=== PATIENT | female | born 1945 | race Caucasian/White ===

== ENCOUNTER → 2017-01-15 | Outpatient (CLI) | payer MEDICARE, OTHER | END | disposition home or self-care (01) | LOC: LAB.O 14:14 | PROVIDERS: ATTEND Family Medicine | DX: R76.8 Other specified abnormal immunological findings in serum (principal); R53.82 Chronic fatigue, unspecified ==

== ENCOUNTER → 2017-03-09 | Outpatient (CLI) | payer MEDICARE, OTHER | END | disposition home or self-care (01) | LOC: GMA 18:17 | PROVIDERS: ATTEND Nurse Practitioner Family | DX: N39.0 Urinary tract infection, site not specified (principal) ==

== ENCOUNTER → 2017-06-06 | Outpatient (CLI) | payer MEDICARE, OTHER ==
--- NOTE | 2017-06-07 17:11 | MRI ---
EXAM DESCRIPTION: Cervical Spine CLINICAL HISTORY: SPINAL STENOSIS IN CERVICAL REGION COMPARISON: 10/11/2016 TECHNIQUE: Multiplanar images of the cervical spine were submitted without the administration of contrast FINDINGS: There is reversal of the normal lordosis which is centered at C5-6. There is grade 1 retrolisthesis of C5 on C6 which has increased when compared to the patient's prior study. Mild anterolisthesis of C3 on C4 is stable. There is loss of disc height at C4-5, C5-6 and C6-7 consistent with disc desiccation. There is no geographic marrow lesion or edema to suggest fracture. There is reactive endplate change at C5-6. Craniovertebral junction appears unremarkable. Signal within the cervical cord appears within normal limits. C2-3: Unremarkable. C3-4: Mild anterolisthesis and disc bulging results in mild flattening of the anterior aspect of the thecal sac and mild bilateral neural foraminal stenosis right greater than left. There appears to be a small disc osteophyte complex laterally on the right which contributes to the neural foraminal narrowing. C4-5: Mild disc bulging and facet arthropathy without significant central canal stenosis. There is mild impingement on the neural foramina.. C5-6: Generalized disc bulging with broad-based protrusion centrally and on the right which results in flattening of the right aspect of the cord. There is moderate narrowing of the central aspect of the canal and moderate to severe narrowing on the left. There is bilateral neural foraminal stenosis right greater than left. C6-7: Generalized bulging of the disc and facet arthropathy at C6-7 with moderate narrowing of the central canal and neural foramina. C7-T1: No significant central canal stenosis. IMPRESSION: Multilevel degenerative change as described above There appears to have been progression of degenerative change at C5-C6 with grade 1 retrolisthesis and increasing central canal and neural foraminal stenosis. There is a broad-based central and right-sided disc bulge which results in moderate left and moderate to severe right sided canal stenosis with some compression of the cord particularly on the right Generalized disc bulging and osteophytosis at C6-7 with moderate central canal stenosis and bilateral neural foraminal stenosis, similar to the previous study No evidence of abnormal signal within the cord Electronically signed by: Hallie Cespedes 06/07/2017 4:36 PM CDT
== END | disposition home or self-care (01) ==
LOC: MRI 09:01
PROVIDERS: ATTEND Orthopaedic Surgery Orthopaedic Surgery of the Spine
DX: M48.02 Spinal stenosis, cervical region (principal)

== ENCOUNTER → 2017-06-12 | Outpatient (CLI) | payer MEDICARE, OTHER | END | disposition home or self-care (01) | LOC: GMAB 10:27 | PROVIDERS: ATTEND Family Medicine | DX: I10 Essential (primary) hypertension (principal) ==

== ENCOUNTER → 2018-03-22 | Outpatient (CLI) | payer MEDICARE, OTHER ==
--- NOTE | 2018-03-22 12:27 | MRI ---
EXAM DESCRIPTION: Cervical Spine: MRI. CLINICAL HISTORY: SPINAL STENOSIS COMPARISON: MRI scan cervical spine 06/06/2017. MRI scan of the lumbar spine on this visit. TECHNIQUE: Multiplanar MRI, multiple sequences, non-contrast High-field. FINDINGS: C3-4: Disc desiccation and grade 1 anterolisthesis. Minimal posterior disc bulge. Right uncinate spur and facet arthrosis with right neural foraminal stenosis. Minimal arthrosis left facet and minimal left neural foraminal narrowing. C4-5: Disc desiccation and anterior disc space loss anterior bulging and endplate ridging. Trace anterolisthesis. No significant disc bulge. Right uncinate spur and facet arthrosis with right neural foraminal stenosis. Moderate left neural foraminal narrowing. Minimal bilateral facet arthrosis. C5-6: Disc desiccation and moderate disc space loss. Anterior bulging and endplate ridging. Schmorl's node in the inferior C5 endplate. Grade 1 retrolisthesis. Posterior disc osteophyte complex protruding in the midline and to the right of midline encroaching on the cord and the right C6 nerve with right paracentral Canal stenosis. Fluid signal in the posterior midline disc margin indicating annular fissure. Right intraforaminal disc osteophyte complex and right neural foraminal stenosis. Mild left neural foraminal narrowing. C6-7: Disc desiccation and disc space loss anterior bulging and endplate ridging. Posterior disc bulge abutting the cord. Bilateral uncinate spurs. Bilateral moderate to severe neural foraminal narrowing. Normal facets. Normal signal in the remaining discs with no bulging. Disc spaces preserved. Canal and neural foramina are patent. Facets negative. No scoliosis. Spine is kyphotic C2-C5. No cord compression or cord edema. Atlantoaxial joint is minimally hypertrophied. Base of the cerebellar tonsils is just above the foramen magnum. Paravertebral soft tissues unremarkable. Vertebral bodies are not compressed at any level. Normal marrow signal in the remaining vertebral bodies and the posterior elements. IMPRESSION: 1. C3-4, grade 1 anterolisthesis. Right side neural foraminal stenosis, stable since the prior study. 2. C4-5 trace grade 1 anterolisthesis with anterior spondylosis. Right neural foraminal stenosis stable since the prior study. 3. C5-C6 right posterior paracentral disc osteophyte complex encroaching on the cord and the right C6 nerve with retrolisthesis. Right paracentral mild canal stenosis and right neural foraminal stenosis. Stable since the prior study. Annular fissure in the disc. 4. C6-7 bilateral uncinate spurs with moderate to severe neural foraminal narrowing. Stable since the prior study. Electronically signed by: Girma Romo MD 03/22/2018 12:25 PM CDT
--- NOTE | 2018-03-22 13:19 | MRI ---
EXAM DESCRIPTION: Lumbar Spine w/wo Contrast: Magnetic Resonance Imaging. CLINICAL HISTORY: LOW BACK PAIN COMPARISON: MRI scan lumbar spine with and without gadolinium IV contrast 10/11/2016. MRI scan of the cervical spine without contrast on this visit. TECHNIQUE: Multiplanar, MRI, multiple standard sequences, without and with standard dose Gadolinium IV contrast, lumbar spine. No adverse reactions. FINDINGS: S1 segment may be transitional and partially lumbarized. Rudimentary S1-2 disc. L5-S1 disc space imaged on axial T2 series 501, image 3. This is also consistent with prior report. L5-S1: Anterior interspace fusion device with superior and inferior anchor screws. Bilateral ligament hypertrophy with right facet arthrosis. Minimal narrowing of the left subarticular recess. Hardware Artifact causing technical difficult evaluation on the contrast images. No fluid collections. Left moderate to severe foraminal narrowing. Mild narrowing right foramen. Mild canal narrowing. Again noted is large cyst in the S2 sacral segment. L4-5: Anterior interbody fusion spacer with superior and inferior anchoring screws. Customary position. Artifact on the postgadolinium images limiting evaluation. Canal is patent. Bilateral moderate foraminal narrowing. No fluid collections. L3-4: Moderate disc space loss anterior bulging and endplate ridging. Endplate irregularities and Modic type II endplate reactive changes to the right of midline. Posterior broad-based disc osteophyte complex abutting the thecal sac and the descending L4 nerves. Moderate canal narrowing. Bilateral facet arthrosis and ligament hypertrophy more on the left. Right foraminal stenosis and moderate left foraminal narrowing is stable. Mild canal narrowing. Evaluation of the contrast images at this level is limited due to artifact from the hardware. Bilateral transpedicular screws at L3 and L5 with unilateral connecting rods. No fluid collection around the hardware. L2-3: Disc desiccation moderate disc space loss, anterior bulging and endplate ridging. Schmorl's nodes in the endplates. Bilateral mild ligament hypertrophy and facet arthrosis. Right posterior disc osteophyte bulge or protrusion more prominent abutting the descending right L3 nerve and the right subarticular recess with borderline right paracentral canal stenosis. This has enlarged since the prior study. Enhancement in this complex and in the L2 endplate. Moderate to severe right foraminal narrowing and moderate left foraminal narrowing. L1-2: Moderate disc space loss and desiccation. Anterior bulging and endplate ridging. Small Schmorl's nodes inferior L1 endplate. Posterior disc osteophyte broad-based bulge abutting the thecal sac. Minimal facet arthrosis and ligament hypertrophy bilaterally. Mild canal narrowing. Posterior disc osteophyte complex enhancing and no other abnormal enhancement at this level. Bilateral mild foraminal narrowing. T12-L1: Minimal disc desiccation with no bulging. Posterior elements are unremarkable. Canal and foramina are patent. Conus terminates at L1. No abnormal contrast enhancement. Vertebral bodies are not compressed at any level. Normal marrow signal in the vertebral bodies and the posterior elements. No abnormal Contrast enhancement. Paravertebral soft tissues unremarkable but technically limited below the L3-4 disc space level..Perivertebral contrast enhancement unremarkable from T12 to L3 4 disc space level. IMPRESSION: 1. Postcontrast images limited from the T3-4 disc space level inferiorly due to artifact from the hardware. Less artifact on the precontrast images. 2. Left moderate to severe foraminal narrowing at L5-S1. Correlate for left L5 radiculopathy. No hardware complications. Stable since the prior study. 3. No hardware complications at L4-5. Stable since the prior study. Moderate foraminal narrowing. 4. Posterior broad-based L3-4 disc osteophyte complex abutting the thecal sac and the descending L4 nerves. Right foraminal stenosis and moderate left foraminal narrowing. Correlate for right L3 radiculopathy. Stable since the prior study. Bilateral L3-L5 transpedicular screws and unilateral connecting rods are unremarkable. 5. Posterior disc osteophyte complex at L2-3 with enhancement, moderate canal narrowing, stable since the prior study. 6. Posterior L2-3 disc osteophyte bulge or protrusion abutting the descending right L3 nerve in the right subarticular recess with borderline right paracentral canal stenosis. The complex is enhancing. This has enlarged since the prior study. Electronically signed by: Girma Romo MD 03/22/2018 1:17 PM CDT
== END ==
LOC: MRI 07:57
PROVIDERS: ATTEND Family Medicine
DX: M48.02 Spinal stenosis, cervical region (principal); M54.5 Low back pain; M25.78 Osteophyte, vertebrae

== ENCOUNTER → 2018-04-12 | Outpatient (CLI) | payer MEDICARE, OTHER ==
--- NOTE | 2018-04-13 16:53 | CT ---
EXAM DESCRIPTION: Cervical Spine: Computed Tomography. CLINICAL HISTORY: CERVICAL SPINE STENOSIS COMPARISON: CT lumbar spine on the same visit. MRI scan lumbar spine 03/22/2018. TECHNIQUE: Spiral, axial 2.5 mm scans through the cervical spine without contrast. Coronal and sagittal 2.0 mm Reconstructions. Total Exam DLP: 468.65 mGy-cm. This exam was performed according to our departmental dose-optimization program which includes automated exposure control, adjustment of the mA and/or kV according to patient size and/or use of iterative reconstruction technique; to reduce radiation dose to as low as reasonably achievable (ALARA). FINDINGS: Hypertrophic changes around the atlantoaxial joint. Minimal arthrosis bilateral atlantooccipital joints. Bilateral C1 to facets are negative. No fractures. C2-3: Canal and bilateral neural foramina are patent with no significant disc bulging. Mild right facet arthrosis. C3-4: Disc space maintained. Grade 1 anterolisthesis. Right uncinate spur. Moderate right facet arthrosis and mild left facet arthrosis. Right neural foraminal stenosis and moderate left neural foraminal narrowing with no significant disc bulging. No canal stenosis. C4-5: Minimal to moderate disc space loss more anteriorly. Anterior endplate spurs. Trace anterolisthesis. Minimal midline posterior disc bulge. Bilateral facet arthrosis more on the right. Right uncinate spur. Borderline right neural foraminal stenosis and moderate left neural foraminal narrowing. C5-6: Marked disc space loss. Posterior Schmorl's node containing a in the C5 endplate. Grade 1 retrolisthesis. Posterior broad-based disc osteophyte bulge into the canal and mild canal stenosis. Bilateral uncinate spurs and bilateral neural foraminal stenosis. Facets are unremarkable. C6-7: Marked disc space loss diffusely with circumferential endplate spurs. Anterior disc osteophyte bulge. Posterior disc osteophyte bulge encroaching on the canal abutting the cord and mild central canal stenosis. Bilateral uncinate spurs and mild to borderline bilateral neural foraminal stenosis. Remaining cervical discs spaces are maintained and no significant disc bulging. Minimal facet arthrosis. Any. No canal or neural foraminal stenosis. No vertebral body compression at any level. C3-C6 kyphosis. Thyroid gland unremarkable. Limited patient and evaluation of cervical soft tissues due to lack of IV contrast. Small lymph nodes are present. Bilateral apical pleural thickening of the lungs. The included esophagus is distended and deviates to the right of the upper thoracic spine posterior to the trachea. The significance of this is uncertain. IMPRESSION: 1. Grade 1 anterolisthesis C3-4. Right neural foraminal stenosis and no canal stenosis. 2. Trace anterolisthesis C4-5 posterior midline bulge. Borderline right neural foraminal stenosis and moderate left neural foraminal and canal narrowing. 3. Marked disc space loss C5-6 and large posterior C5 Schmorl's node. Grade 1 retrolisthesis. Mild central canal stenosis. Bilateral neural foraminal stenosis. 4. Posterior C6-7 disc osteophyte bulge and significant disc space loss with mild central canal stenosis. Borderline bilateral neural foraminal stenosis. Electronically signed by: Girma Romo MD 04/13/2018 4:52 PM CDT
--- NOTE | 2018-04-13 18:24 | CT ---
EXAM DESCRIPTION: Lumbar Spine: Computed Tomography. CLINICAL HISTORY: S/P LUMBAR FUSION COMPARISON: CT scan cervical spine non - Contrast on this visit. MRI scan lumbar spine 03/22/2018. TECHNIQUE: Spiral, axial 2.5 mm scans through the lumbarspine without contrast. Coronal and sagittal 2.0 mm Reconstructions. Total Exam DLP: 580.74mGy-cm. This exam was performed according to our departmental dose-optimization program which includes automated exposure control, adjustment of the mA and/or kV according to patient size and/or use of iterative reconstruction technique; to reduce radiation dose to as low as reasonably achievable (ALARA). FINDINGS: Fusion construct L4-S1. Interbody fusion devices at L4-5 and L5-S1. Anterior interspace fusion devices at the same levels. Customary position. No bony complications. Bilateral transpedicular screws L4 and S1 with unilateral connecting rods. Hardware is intact. No bony complications. Moderate canal narrowing L4-5 and mild canal narrowing L5-S1. Bilateral moderate foraminal narrowing at L4-5. Mild narrowing on the right at L5-S1 and moderate narrowing on the left. Advanced arthrosis of the L4-5 and L5-S1 facets more on the left than right. Severe disc space loss at L3-4 with diffuse endplate sclerosis superior and inferior and multiple Schmorl's nodes more on the inferior L3 endplate. Trace retrolisthesis. Anterior disc bulge and endplate spurs. Posterior osteophyte bulge, encroaching on the canal. Bilateral advanced facet arthrosis and ligament hypertrophy. Bilateral moderate to severe foraminal narrowing more on the right. Sclerosis and minimal loss of height of the right side of the vertebral body. L2-3: Severe disc space loss and air density in the disc space. Air-filled Schmorl's nodes in the superior L2 endplate. More Schmorl's nodes in the superior endplate. Anterior disc bulging and endplate spurs. Trace retrolisthesis. Posterior broad-based disc bulge and minimal disc bulge into the bilateral foramina. Severe right neural foraminal narrowing or mild foraminal stenosis. Mild to moderate left neural foraminal narrowing. Bilateral facet arthrosis and ligament hypertrophy more on the right. L1-2: Severe disc space loss and diffuse endplate reactive changes with Schmorl's nodes more on the superior L1 endplate. Anterior endplate spurs and disc bulging. Posterior disc bulge and endplate spur complex encroaching on the thecal sac with bilateral facet arthrosis and hypertrophy ligaments. Moderate canal narrowing. Bilateral mild foraminal narrowing. More sclerosis on the left side of the endplates and disc space. T12-L1: Minimal disc space loss. Alignment is unremarkable. No significant disc bulge. Canal and foramina are patent. Minimal facet arthrosis. No vertebral body compression at any level. Left L2-L4 curvature and right L4 - S1 curvature. No large paravertebral mass. IMPRESSION: 1. L4-S1 fusion construct anterior and posterior. Customary position and near-anatomic alignment. No hardware or bony complications. Moderate narrowing of the neuroforamina. Advanced arthrosis left side facets. 2. Advanced spondylosis L3-4 and trace retrolisthesis. Bilateral moderate to severe foraminal narrowing more on the right. Facet arthrosis and ligament hypertrophy. Spondylotic mild compression of the right L3 vertebral body. 3. Advanced spondylosis L2-3 and trace retrolisthesis posterior broad-based disc bulge. Severe right neural foraminal narrowing or mild stenosis. Moderate left neural foraminal narrowing. Significant canal narrowing. 4. L1-2 posterior disc bulge, moderate canal narrowing and bilateral mild foraminal narrowing. Electronically signed by: Girma Romo MD 04/13/2018 6:23 PM CDT
== END ==
LOC: CT 10:56
PROVIDERS: ATTEND Orthopaedic Surgery Orthopaedic Surgery of the Spine
DX: M48.02 Spinal stenosis, cervical region (principal); M48.061 Spinal stenosis, lumbar region without neurogenic claudication; M51.86 Other intervertebral disc disorders, lumbar region; M50.90 Cervical disc disorder, unspecified, unspecified cervical region; Z98.1 Arthrodesis status

== ENCOUNTER → 2018-05-28 | Outpatient (CLI) | payer MEDICARE, OTHER | LOC: GMAJS 11:33 | PROVIDERS: ATTEND Physician Assistant | DX: R30.0 Dysuria (principal) ==

== ENCOUNTER → 2018-06-17 | Outpatient (CLI) | payer MEDICARE, OTHER ==
--- NOTE | 2018-06-17 14:34 | CT ---
EXAM DESCRIPTION: Abdomen/Pelvis w/Contrast: Computed Tomography. CLINICAL HISTORY: LLQ PAIN COMPARISON: CT scan abdomen and pelvis 10/19/2016. TECHNIQUE: Spiral-axial scans at 5.0 mm intervals through the abdomen and pelvis, after nonionic IV contrast and water-soluble oral contrast. Coronal and sagittal 2.0 mm reconstructions. Delayed scans, liver through the pelvis. Axial-spiral 5mm. No adverse reactions. Total Exam DLP: 2212.19 mGy-cm. This exam was performed according to our departmental dose-optimization program which includes automated exposure control, adjustment of the mA and/or kV according to patient size and/or use of iterative reconstruction technique; to reduce radiation dose to as low as reasonably achievable (ALARA). FINDINGS: Colon: Oral contrast from the ascending colon to the distal transverse colon. Fascial thickening and mesenteric stranding is noted abutting the descending colon at the level of the superior iliac crests. More inferiorly, the serosa and outer wall of the colon are thickened along with thickening of the mucosa with significant narrowing of the lumen. This extends almost to the level of the acetabulum. The remainder of the sigmoid colon and rectum are unremarkable except for moderate redundancy of the sigmoid colon. Abnormal segments of distal transverse colon and descending colon on the prior study appear normal on this study. No free intraperitoneal air. No fluid in the pelvic cul-de-sac or around the inflamed segment. Pelvic Organs: Normal appearance of the vaginal cuff. Gynecological organs are absent. No fluid in the cul-de-sac. Small Bowel: Oral contrast throughout with normal caliber Terminal Ileum/Cecum: Normal caliber and contains oral contrast. Small appendiceal stump. Lung bases and pleura: Minimal scarring lateral left base. Liver, Stomach, Spleen, Adrenal Glands: Minimal fatty replacement in the liver with no significant enlargement. Contrast and air contrast level in the diverticulum at the junction of the second and third segment of the duodenum, impressing on the uncinate process of the pancreas. Otherwise unremarkable. Pancreas, Gallbladder, Ducts: Gallbladder visualized. Infiltration of the pancreas. Normal duct.. Kidneys and Ureters: Unremarkable. Mesentery: Stranding around the diverticulitis and fascial thickening. No ascites. Aorta: Minimal atherosclerotic calcification and ectasia. Spine and Bony Pelvis: Minimal degenerative changes in the bilateral acetabula and pubic symphysis. Spondylosis at multiple levels of the lumbar spine with levoscoliosis and dextroscoliosis and fusion construct L4 S1- bilaterally. Large defect caused by a soft tissue mass in the midline into the left of midline at S2 most likely a sacral perineural cyst or Tarlov cyst. Stable since lumbar CT scan April 2018. Abdominal Wall/Back Soft Tissues: Minimal fatty diastases at the umbilicus. IMPRESSION: 1. Diverticulitis versus focal inflammatory or infectious process at the junction of the descending colon and proximal sigmoid. Fatty and fascial stranding and thickening but no fluid collection or free air. No fluid in the cul-de-sac. Very few diverticula are seen. Similar appearing more diffuse inflammatory or infectious process seen more proximally on CT scan in October 2016. 2. Stable duodenal diverticulum abutting the entrance of the pancreatic and common bile duct into the duodenum. 3. Stable lumbar sacral fusion construct. CRITICAL COMMUNICATION: The critical value was texted directly by phone to Dr. Tom Perkins, with text response, at approximately 1335 hours, on June 17, 2018. Electronically signed by: Girma Romo MD 06/17/2018 2:33 PM CDT
== END ==
LOC: GMAE 11:10
PROVIDERS: ATTEND Family Medicine
DX: K57.30 Diverticulosis of large intestine without perforation or abscess without bleeding (principal); R10.32 Left lower quadrant pain; E78.2 Mixed hyperlipidemia

== ENCOUNTER → 2018-08-01 | Outpatient (CLI) | payer MEDICARE, OTHER ==
--- NOTE | 2018-08-02 08:31 | RAD ---
EXAM DESCRIPTION: Cervical Spine,3 Views CLINICAL HISTORY: 72 yearsFemale, S/P CERVICAL SPINAL FUSION. PRIMARY COMPARISON: None. IMPRESSION: ACDF hardware is present from C5 through C7. Hardware appears in good alignment, with no complicating features. Reversal of the normal cervical lordosis. Vertebral body stature is maintained. No acute fracture or destructive osseous lesion. Moderate disc narrowing at C4-C5 with anterolateral osteophytes. No prevertebral soft tissue swelling. Electronically signed by: Pipe López MD 08/02/2018 8:30 AM CDT
== END ==
LOC: RAD 14:30
PROVIDERS: ATTEND Orthopaedic Surgery Orthopaedic Surgery of the Spine
DX: Z98.890 Other specified postprocedural states (principal); M43.22 Fusion of spine, cervical region

== ENCOUNTER → 2018-08-14 | Outpatient (CLI) | payer MEDICARE, OTHER ==
--- NOTE | 2018-08-15 08:35 | RAD ---
EXAM DESCRIPTION: Cervical Spine,3 Views CLINICAL HISTORY: CERVICAL SPINE FUSION COMPARISON: 01 August 2018 TECHNIQUE: AP/lateral/ open-mouth odontoid FINDINGS: Mild posterior subluxation of C4 on C3 is observed. Anterior and interbody fusion is seen at the C5-6 and C6-7 levels. Loss of disc height is observed at the a.c. 4 5 level. Anterior osteophyte formation is observed at this level. The atlantoaxial junction and dens are normal. No hardware failure seen. No soft tissue swelling is seen. No significant interval changes noted. IMPRESSION: There is evidence of ACDF at C5-6 and C6-7. No significant interval changes noted. Electronically signed by: Anish Sahni MD 08/15/2018 8:34 AM CDT
== END ==
LOC: RAD 13:39
PROVIDERS: ATTEND Orthopaedic Surgery Orthopaedic Surgery of the Spine
DX: Z98.1 Arthrodesis status (principal)

== ENCOUNTER → 2019-06-10 | Outpatient (CLI) | payer MEDICARE, OTHER ==
--- NOTE | 2019-06-10 17:16 | MRI ---
EXAM DESCRIPTION: Cervical Spine w/wo Contrast: MRI. CLINICAL HISTORY: 73 years Female CERVICAL SPINE FUSION COMPARISON: MRI scan of the cervical spine without contrast 03/22/2018. TECHNIQUE: Multiplanar, high-field MRI, multiple sequences, non-contrast Cervical spine. FINDINGS: C3-C4: Grade 1 anterolisthesis 1 mm. Disc space maintained. Right uncinate spur and right facet hypertrophic arthrosis with neural foraminal stenosis. Left uncinate spur and moderate left neural foraminal narrowing. Minimal mild narrowing of the canal. No change from the prior study. C4-C5: Anterior disc bulge and endplate reactive changes with disc space loss and endplate ridging. Bilateral mild neural foraminal narrowing. Mild canal narrowing. Bilateral mild facet arthrosis. Stable since the prior study. ACDF fusion construct C5-C7. Minimal posterior bulge of fusion material at C5-6 into the canal to the right of midline, abutting the right ventral cord and right C6 nerve. Moderate right neural foraminal narrowing with left neural foramen patent. Canal and bilateral neural foramina patent at C6-C7. No facet abnormalities. Normal signal in the remaining discs with no bulging. Disc spaces preserved. Canal and neural foramina are patent. Facet joints unremarkable. No change from the prior study. Spinal alignment minimally kyphotic C2-C5. No cord compression or cord edema. Atlantoaxial joint minimal fluid. Base of the cerebellar tonsils is at the level of the foramen magnum. Paravertebral soft tissues unremarkable. Vertebral bodies are not compressed at any level. Normal marrow signal in the remaining vertebral bodies and the posterior elements. IMPRESSION: 1. Grade 1 anterolisthesis C3-C4 with desiccation of the disc. Right uncinate spur and hypertrophic right facet arthrosis resulting in neural foraminal stenosis. Correlate for right C4 radiculopathy. 2. ACDF fusion construct C5-C7. Minimal narrowing of the right paracentral canal and right neuroforamen body fusion material at C5-C6. No stenosis. Other levels are stable since the prior study. Electronically signed by: Girma Romo MD 06/10/2019 5:14 PM CDT
== END ==
LOC: MRI 08:01
PROVIDERS: ATTEND Orthopaedic Surgery Orthopaedic Surgery of the Spine
DX: Z98.1 Arthrodesis status (principal); M43.12 Spondylolisthesis, cervical region; M50.31 Other cervical disc degeneration, high cervical region

== ENCOUNTER → 2019-07-08 | Outpatient (CLI) | payer MEDICARE, OTHER | LOC: GMAE 11:11 | PROVIDERS: ATTEND Family Medicine | DX: I10 Essential (primary) hypertension (principal); E11.9 Type 2 diabetes mellitus without complications ==

== ENCOUNTER → 2020-03-10 | Outpatient (CLI) | payer MEDICARE, OTHER | LOC: GMAE 11:33 | PROVIDERS: ATTEND Family Medicine | DX: R10.13 Epigastric pain (principal) ==

== ENCOUNTER → 2020-03-11 | Outpatient (CLI) | payer MEDICARE, OTHER ==
--- NOTE | 2020-03-11 10:36 | US ---
EXAM DESCRIPTION: Gall Bladder: ULTRASOUND. CLINICAL HISTORY: EPIGASTRIC PAIN COMPARISON: CT scan abdomen June 2018. TECHNIQUE: Transabdominal scanning: Arias-scale and Doppler modes. FINDINGS: Gallbladder: Normal size and shape with echogenic nonmovable polyp measuring 4.1 mm. No fluid around the gallbladder. No wall thickening. 2.6 mm. Non-tender with transducer pressure. Common bile duct: caliber 6.5 mm upper limits of normal. Liver: Increased echogenicity; contour liver capsule smooth where seen. No fluid around the liver. Intrahepatic biliary ducts normal caliber. Doppler hepatopedal flow portal vein.. Long axis right lobe 13.8 cm. Pancreas: normal size Normal echogenicity. Duct not seen. Aorta: 1.7 cm normal caliber. Right kidney: long axis is 9.3 cm. Mid renal cortical thickness and echogenicity normal. No echogenic stones, no pararenal fluid, no hydronephrosis.. IMPRESSION: 1. Gallbladder polyp but no stones or sludge. No wall thickening or fluid. Nontender. Common bile duct: Upper normal caliber for patient's age. 2. Mild steatosis of the liver with normal size and otherwise unremarkable. Pancreas negative. Physiologic appearance of the right kidney and normal caliber of the proximal abdominal aorta. Electronically signed by: Girma Romo MD 03/11/2020 10:35 AM CDT
== END ==
LOC: US 08:00
PROVIDERS: ATTEND Family Medicine
DX: K82.4 Cholesterolosis of gallbladder (principal); K76.0 Fatty (change of) liver, not elsewhere classified

== ENCOUNTER → 2020-05-06 | Outpatient (CLI) | payer MEDICARE, OTHER ==
--- NOTE | 2020-05-07 09:29 | RAD ---
EXAM DESCRIPTION: Chest,2 Views CLINICAL HISTORY: 74 years Female, PNEUMONIA COMPARISON: 08/19/2015 FINDINGS: 2 views/radiographs Heart size and pulmonary vessels are within normal limits. There is no pneumothorax or pleural effusion. The left lung is clear. Right perihilar airspace disease. The soft tissues are unremarkable. No acute osseous findings. IMPRESSION: Right perihilar airspace disease; atelectasis or pneumonia. Electronically signed by: Kashif Blancas MD 05/07/2020 9:28 AM CDT
== END ==
LOC: RAD 15:03
PROVIDERS: ATTEND Family Medicine
DX: J18.9 Pneumonia, unspecified organism (principal); R91.8 Other nonspecific abnormal finding of lung field

== ENCOUNTER 2020-06-16 20:09 | Emergency (ER) | payer MEDICARE, OTHER ==
[2020-06-16] MEDS ORDERED: ALUM & MAG HYDROX-SIMETHICONE 30 ML, LIDOCAINE VISCOUS 2% 15 ML PO ONE ×2 (20:26)
--- NOTE | 2020-06-16 21:15 | RAD ---
EXAM DESCRIPTION: Abdomen Series CLINICAL HISTORY: epigastric pain 1 hr COMPARISON: None FINDINGS: Frontal view of the chest and supine and upright images of the abdomen were submitted. Cardiac silhouette is within normal limits. There is no free air in the abdomen. There is no evidence of bowel obstruction. EKG leads project over the chest and abdomen. Linear opacity in the right mid lung may represent scar versus subsegmental atelectasis. Patient is status post cervical spine surgery and lumbar surgery. IMPRESSION: No acute abnormalities. Electronically signed by: Earl Dyer MD 06/16/2020 9:14 PM CDT
[2020-06-16] MEDS ORDERED: INSULIN DETEMIR 100 UNITS/ML PEN SUBCU ONE (21:45)
--- NOTE | 2020-06-17 00:34 | ED.PDOC ---
History of Present Illness - General Chief Complaint: General Stated Complaint: pain under both breast Time Seen by Provider: 06/16/20 20:21 Source: patient Exam Limitations: no limitations - History of Present Illness Initial Comments: The patient is a 74-year-old female presented emergency room secondary to about an hour and a half of symptoms ofEpigastric discomfort before arrival. No vomiting. She has had gastritis issues in the past and does take metformin. The patient additionally is a diabetic but does not follow her blood sugars. No true substernal chest pain. No shortness of breath. No syncope or near syncope. No palpitations. No fevers. no runny nose or sore throat. Discomfort did significantly improve with a GI cocktail. The patient did take 4 full dose aspirin before arrival. Timing/Duration: 1-3 hours Severity: mild Improving Factors: medication Worsening Factors: nothing Associated Symptoms: loss of appetite Allergies/Adverse Reactions: Allergies Celecoxib [From Celebrex] Allergy (Verified 08/19/15 09:28) Other itching Codeine Allergy (Verified 08/19/15 09:28) Enalapril Allergy (Verified 08/19/15 09:28) Home Medications: Ambulatory Orders Tlmwbkk-Jcijznvf-Nncvh Tab [Fiorinal Tab] 1 ea PO PRN PRN 08/19/15 Linaclotide [Linzess] 145 mcg PO ACBK 08/19/15 Losartan Potassium 100 mg PO DAILY 08/19/15 Naratriptan HCl [Amerge] 2.5 mg PO PRN 08/19/15 Zolpidem Tartrate [Ambien] 10 mg PO BEDTIME 08/19/15 Famotidine 20 mg PO DAILY #14 tab 06/17/20 Glipizide [Glipizide ER] 5 mg PO ACBK #30 tab 06/17/20 Sucralfate Tab [Carafate Tab] 1 gm PO QID #60 tab 06/17/20 Review of Systems - Review of Systems Constitutional: States: no symptoms reported EENTM: States: no symptoms reported Respiratory: States: no symptoms reported Cardiology: States: no symptoms reported Gastrointestinal/Abdominal: States: abdominal pain Genitourinary: States: no symptoms reported Musculoskeletal: States: no symptoms reported Skin: States: no symptoms reported Neurological: States: no symptoms reported Endocrine: States: no symptoms reported All other Systems: No Change from Baseline Past Medical History (General) - Patient Medical History Hx Seizures: No Hx Stroke: No Hx Dementia: No Hx Asthma: No Hx of COPD: No Hx Cardiac Disorders: Yes - Hx of OK no stents in place Hx Congestive Heart Failure: No Hx Pacemaker: No Hx Hypertension: Yes Hx Thyroid Disease: No Hx Diabetes: Yes - Type 2, Metaformin Hx Gastroesophageal Reflux: No Hx Renal Disease: No Hx Cancer: No Hx of HIV: No Hx Hepatitis C: No Hx MRSA: No Surgical History: Hysterectomy, other - Vaccination History Hx Tetanus, Diphtheria Vaccination: No Hx Influenza Vaccination: No Hx Pneumococcal Vaccination: Yes Immunizations Up to Date: - pt unsure - Social History Hx Tobacco Use: No Hx Chewing Tobacco Use: No Hx Alcohol Use: No Hx Substance Use: No Hx Substance Use Treatment: No Hx Depression: No Feels Threatened In Home Enviroment: No Feels Threatened In a Relationship: No Hx Physical Abuse: No Hx Emotional Abuse: No Hx Suspected Abuse: No - Activities of Daily Living Hospice Agency (if applicable):: None - Female History Patient is a Female of Child Bearing Age (10 -59 yrs old): No Family Medical History - Family History Father Living Status: Age at (years of age): 91 Hx Family Hypertension: Yes Physical Exam - Physical Exam General Appearance: Alert, No apparent distress Eye Exam: bilateral normal Ears, Nose, Throat: hearing grossly normal, normal pharynx Neck: full range of motion, supple Respiratory: lungs clear, normal breath sounds, no respiratory distress, no accessory muscle use Cardiovascular/Chest: normal peripheral pulses, regular rate, rhythm, no edema Peripheral Pulses: radial,right: 2+, radial,left: 2+ Gastrointestinal/Abdominal: soft, other - Epigastric tenderness to palpation. Rectal Exam: deferred Back Exam: no CVA tenderness, no vertebral tenderness Extremity: non-tender, normal inspection, no pedal edema, normal capillary refill Neurologic: turkish line attendant II-XII nml as tested, alert, normal mood/affect, oriented x 3 Skin Exam: normal color Comments: Vital Signs - 24 hr 06/16/20 06/16/20 06/16/20 20:13 20:15 21:10 Temperature 97.8 F Pulse Rate [ 68 68 75 monitor] Respiratory 20 18 Rate Blood Pressure 179/90 156/80 [Left Arm] O2 Sat by Pulse 98 99 Oximetry 06/16/20 06/16/20 06/17/20 22:10 23:10 00:00 Temperature 97.9 F 97.8 F Pulse Rate [ 77 72 70 monitor] Respiratory 18 18 20 Rate Blood Pressure 134/76 125/74 135/76 [Left Arm] O2 Sat by Pulse 99 99 100 Oximetry Progress - Progress Progress: 06/17/20 00:35 The patient is a 74-year-old female presented emergency room with epigastric pain of fairly short duration. This is most likely gastritis related to metformin use along with dehydration from uncontrolled diabetes itself. Secondary to the patient being a difficult IV stick, she has deferred IV rehydration here and will increase thickened liquids significantly over the next few days. The patient does need to continue her metformin with her breakfast. I am also going to add a little bit of glipizide in the morning. She does need to start checking her blood sugars in the mornings as well and follow-up with her primary care doctor the earlier part of this coming week. 2 sets of cardiac enzymes were done for good measure. No evidence of any rise of the troponin and EKG was reassuring. No other source of discomfort has been found at this time. Obviously if the patient is significantly for the worse, then additional work-up may be warranted. Vital signs have remained stable. Patient is feeling much better. She will be written for a couple of weeks of famotidine and Carafate to help with gastritis issues. ER warnings are given. juwan [email or web address] [id number] - Results/Orders Results/Orders: Telemetry shows normal sinus rhythm. Chest x-ray shows mild atelectasis. EKG shows normal sinus rhythm 68 bpm. Normal axis. Borderline R wave progression. Borderline first-degree AV block. No ST segment or T wave changes indicative of acute ischemia. Normal QT interval. Laboratory Results - last 24 hr 06/16/20 06/16/20 06/16/20 20:46 20:46 20:46 WBC 6.0 RBC 4.48 Hgb 13.4 Hct 39.0 MCV 87.1 MCH 29.8 MCHC 34.2 RDW 15.2 H Plt Count 290 MPV 7.7 Absolute Neuts (auto) 3.00 Absolute Lymphs (auto) 1.80 Absolute Monos (auto) 0.70 Absolute Eos (auto) 0.50 H Absolute Basos (auto) 0.10 Neutrophils % 49.6 Lymphocytes % 30.1 Monocytes % 11.2 H Eosinophils % 7.7 H Basophils % 1.4 PT 9.8 INR < 1.00 PTT (SP) 23.9 Sodium 134 L Potassium 3.7 Chloride 99 L Carbon Dioxide 23 Anion Gap 15.7 BUN 13 Creatinine 0.55 L BUN/Creatinine Ratio 23.6 H Random Glucose 244 H Hemoglobin A1c Serum Osmolality 276.4 Calcium 8.7 Magnesium 2.0 Total Bilirubin 0.4 AST 22 ALT 22 Alkaline Phosphatase 55 Creatine Kinase 113 CK-MB (CK-2) 4.6 H* CK-MB (CK-2) % Not Reportable Troponin I < 0.02 B-Natriuretic Peptide 24.9 Serum Total Protein 6.6 Albumin 3.9 Globulin 2.7 Albumin/Globulin Ratio 1.4 Amylase 42 Lipase 27 Urine Color Urine Appearance Urine pH Ur Specific Hudson Urine Protein Urine Glucose (UA) Urine Ketones Urine Blood Urine Nitrite Urine Bilirubin Urine Urobilinogen Ur Leukocyte Esterase Urine RBC Urine WBC Ur Epithelial Cells Urine Bacteria 06/16/20 06/16/20 06/16/20 20:46 23:40 23:40 WBC RBC Hgb Hct MCV MCH MCHC RDW Plt Count MPV Absolute Neuts (auto) Absolute Lymphs (auto) Absolute Monos (auto) Absolute Eos (auto) Absolute Basos (auto) Neutrophils % Lymphocytes % Monocytes % Eosinophils % Basophils % PT INR PTT (SP) Sodium Potassium Chloride Carbon Dioxide Anion Gap BUN Creatinine BUN/Creatinine Ratio Random Glucose Hemoglobin A1c 8.0 H Serum Osmolality Calcium Magnesium Total Bilirubin AST ALT Alkaline Phosphatase Creatine Kinase 117 CK-MB (CK-2) 4.8 H* CK-MB (CK-2) % Not Reportable Troponin I < 0.02 B-Natriuretic Peptide Serum Total Protein Albumin Globulin Albumin/Globulin Ratio Amylase Lipase Urine Color Yellow Urine Appearance Clear Urine pH 7.0 Ur Specific Hudson 1.020 Urine Protein Negative Urine Glucose (UA) 500 H Urine Ketones Negative Urine Blood Negative Urine Nitrite Negative Urine Bilirubin Negative Urine Urobilinogen 0.2 Ur Leukocyte Esterase Negative Urine RBC 0 Urine WBC 0 Ur Epithelial Cells 0-1 Urine Bacteria 0 Departure - Departure Clinical Impression: Dehydration Gastritis Qualifiers: Gastritis type: unspecified gastritis Chronicity: acute Gastritis bleeding: without bleeding Qualified Code(s): K29.00 - Acute gastritis without bleeding Uncontrolled type 2 diabetes mellitus Qualifiers: Glycemic state: with hyperglycemia Qualified Code(s): E11.65 - Type 2 diabetes mellitus with hyperglycemia Disposition: Discharge to Home or Self Care Condition: Fair Departure Forms: ED Discharge - Pt. Copy, Patient Portal Self Enrollment Diet: diabetic diet Activity: increase activity as tolerated Referrals: Drew Cisse MD [Primary Care Provider] - 1-5 Days Prescriptions: Sucralfate Tab [Carafate Tab] 1 gm PO QID #60 tab Famotidine 20 mg PO DAILY #14 tab Glipizide [Glipizide ER] 5 mg PO ACBK #30 tab Home Medications: Ambulatory Orders Xphaehl-Ldiawiqz-Exqiw Tab [Fiorinal Tab] 1 ea PO PRN PRN 08/19/15 Linaclotide [Linzess] 145 mcg PO ACBK 08/19/15 Losartan Potassium 100 mg PO DAILY 08/19/15 Naratriptan HCl [Amerge] 2.5 mg PO PRN 08/19/15 Zolpidem Tartrate [Ambien] 10 mg PO BEDTIME 08/19/15 Famotidine 20 mg PO DAILY #14 tab 06/17/20 Glipizide [Glipizide ER] 5 mg PO ACBK #30 tab 06/17/20 Sucralfate Tab [Carafate Tab] 1 gm PO QID #60 tab 06/17/20 Additional Instructions: The patient is a 74-year-old female presented emergency room with epigastric pain of fairly short duration. This is most likely gastritis related to metformin use along with dehydration from uncontrolled diabetes itself. Secondary to the patient being a difficult IV stick, she has deferred IV rehydration here and will increase thickened liquids significantly over the next few days. The patient does need to continue her metformin with her breakfast. I am also going to add a little bit of glipizide in the morning. She does need to start checking her blood sugars in the mornings as well and follow-up with her primary care doctor the earlier part of this coming week. 2 sets of cardiac enzymes were done for good measure. No evidence of any rise of the troponin and EKG was reassuring. No other source of discomfort has been found at this time. Obviously if the patient is significantly for the worse, then additional work-up may be warranted. Vital signs have remained stable. Patient is feeling much better. She will be written for a couple of weeks of famotidine and Carafate to help with gastritis issues. ER warnings are given.
[2020-06-17 00:53] VITALS: BP 161/79; TEMP 97.3; O2SAT 99
== END 2020-06-17 00:42 | disposition home or self-care (01) ==
LOC: ER 20:09
DX: K29.00 Acute gastritis without bleeding (principal); E86.0 Dehydration; E11.65 Type 2 diabetes mellitus with hyperglycemia; I10 Essential (primary) hypertension; I25.2 Old myocardial infarction; Z79.899 Other long term (current) drug therapy; Z79.84 Long term (current) use of oral hypoglycemic drugs; Z88.8 Allergy status to other drugs, medicaments and biological substances; Z88.5 Allergy status to narcotic agent
CPT/HCPCS: 36415; 74019; 80053; 81001; 82150; 82550; 82553; 83036; 83690; 83735; 83880; 84484; 85025; 85610; 85730; 93005; J1815

== ENCOUNTER → 2020-09-03 | Outpatient (CLI) | payer MEDICARE, OTHER ==
--- NOTE | 2020-09-05 19:20 | RAD ---
EXAM DESCRIPTION: Lumbar Spine 5 Views: CR/DR/XR CLINICAL HISTORY: 74 years Female LOW BACK PAIN COMPARISON: MRI lumbar spine May 27 lumbar spine radiographs December 2014. TECHNIQUE: 4-7 views AP Lateral Spot lateral L5-S1 Bilateral lateral obliques Lateral flexion-extension. Technically difficult study due to patient body habitus and bone density. FINDINGS: Lumbar type vertebra: 5. Transitional vertebrae: None. Disc spaces: Interbody fusion L4-L5 and L5-S1. Anterior disc space stabilizers with anterior vertebral body stabilization screws at both levels. Posterior bilateral transpedicular screws at L4 and S1 with unilateral connecting rods. Spondylolisthesis at L1-L2 and L2-L3 and L3-L4 with posterior endplates encroaching on the canal.. Compression deformities: None. Bone Density: Decreased. Alignment: Stable since the prior study. Oblique: Foraminal narrowing. Facet joints are difficult to evaluate due to lack of bone density. Facet joints: See above. Abdomen: Possible medication in the upper quadrant left. IMPRESSION: Stable interbody fusion L4-L5 and L5-S1 and stable hardware. No definite complications. Evaluation is limited due to increased body habitus and decreased bone density. Electronically signed by: Girma Romo MD 09/05/2020 7:19 PM CDT
== END ==
LOC: RAD 09:55
PROVIDERS: ATTEND Family Medicine Sports Medicine
DX: M54.5 Low back pain (principal); Z98.1 Arthrodesis status

== ENCOUNTER → 2020-09-30 | Outpatient (CLI) | payer MEDICARE, OTHER | LOC: YCFC.O 06:47 | PROVIDERS: ATTEND Family Medicine | DX: R53.83 Other fatigue (principal); E11.9 Type 2 diabetes mellitus without complications; M79.7 Fibromyalgia; E78.5 Hyperlipidemia, unspecified ==

== ENCOUNTER → 2020-10-15 | Outpatient (CLI) | payer MEDICARE, OTHER | LOC: YCFC.O 11:15 | PROVIDERS: ATTEND Nurse Practitioner | DX: N39.0 Urinary tract infection, site not specified (principal) ==

== ENCOUNTER 2020-10-19 14:47 | Observation (INO) | payer MEDICARE, OTHER ==
[2020-10-19] MEDS ORDERED: SODIUM CHLORIDE 0.9% (FLUSH) 10 ML SYG IV PRN (14:59)
--- NOTE | 2020-10-19 15:29 | RAD ---
EXAM DESCRIPTION: Chest,1 View CLINICAL HISTORY: 75 years Female, cp COMPARISON: 05/06/2020 TECHNIQUE: Single view radiograph of the chest. IMPRESSION: Normal size cardiac silhouette. Partially calcified aorta. Bibasilar opacification which may represent scarring or atelectasis versus recurrent versus unchanged residual airspace disease. No pleural effusion or pneumothorax. Thoracic spondylosis. Lower cervical fusion unchanged. Electronically signed by: Kimo Nascimento MD 10/19/2020 3:28 PM TOWER DIRECTOR
[2020-10-19] MEDS: ASPIRIN TABLET 325 MG TAB PO ONE ×2 (15:39→15:41)
--- NOTE | 2020-10-19 15:59 | ED.PDOC ---
History of Present Illness - General Source: patient, RN notes reviewed, Vital Signs reviewed Exam Limitations: no limitations - History of Present Illness Initial Comments: 75 yo F with a pmh CAD and DM comes in with RL chest tendeness pain x 2 days. Also has RUQ pain tenderness thats been progressively worse over the past day, no n/v/d. no hx of gallstones. does have hx of gerd. no shortness of breath. no cough. no fever, no known sick contacts. <Melva Alfredo - Last Filed: 10/20/20 06:32> <Camron Maurice - Last Filed: 10/20/20 23:24> - General Chief Complaint: General Stated Complaint: right side rib pain Time Seen by Provider: 10/19/20 14:49 - History of Present Illness Allergies/Adverse Reactions: Allergies Celecoxib [From Celebrex] Allergy (Verified 10/20/20 02:10) Other itching Codeine Allergy (Verified 10/20/20 02:10) Enalapril Allergy (Verified 10/20/20 02:10) Home Medications: Ambulatory Orders Losartan Potassium 100 mg PO DAILY 08/19/15 Zolpidem Tartrate [Ambien] 10 mg PO BEDTIME 08/19/15 Acetaminophen [Tylenol] 500 mg PO PRN PRN 10/20/20 Aspirin [Florina Low Dose] 81 mg PO DAILY 10/20/20 Celecoxib [CeleBREX] 100 mg PO BID 10/20/20 Cetirizine HCl [ZyrTEC] 10 mg PO PRN PRN 10/20/20 Estradiol 0.5 mg PO DAILY 10/20/20 Finasteride 2.5 mg PO DAILY 10/20/20 Fluticasone Prop 0.05% Nasal [Flonase Nasal [place]] 1 spray BNAS DAILY 10/20/20 HYDROcodone 5MG/APAP 325MG [[place] 5/325] 1 ea PO PRN PRN 10/20/20 Metformin HCl [Metformin Hydrochloride] 1,000 mg PO QAM 10/20/20 Metoprolol Tartrate 50 mg PO BID 10/20/20 Multiple Minerals W/ Vitamins [Citracal Plus] 1 tab PO BID 10/20/20 Naratriptan HCl 2.5 mg PO DAILY 10/20/20 [place]-3 Fatty Acids [[place] 3 500 500 mg] 1 cap PO DAILY 10/20/20 Pantoprazole Sodium [Protonix] 40 mg PO DAILY 10/20/20 Pregabalin [Lyrica] 75 mg PO TID 10/20/20 Review of Systems - Review of Systems Constitutional: Denies: chills, fever, malaise EENTM: Denies: blurred vision, throat pain, mouth pain Respiratory: Denies: cough, short of breath Cardiology: Denies: palpitations, syncope Gastrointestinal/Abdominal: States: abdominal pain, nausea. Denies: diarrhea, vomiting Genitourinary: Denies: dysuria, frequency, hematuria Musculoskeletal: Denies: back pain Skin: Denies: rash Neurological: Denies: headache, numbness, pre-existing deficit Endocrine: Denies: unexplained weight gain, unexplained weight loss Hematologic/Lymphatic: Denies: easy bleeding, easy bruising <Melva Alfredo Filed: 10/20/20 06:32> Past Medical History (General) - Patient Medical History Hx Seizures: No Hx Stroke: No Hx Dementia: No Hx Asthma: No Hx of COPD: No Hx Cardiac Disorders: Yes - Hx of VT no stents in place Hx Congestive Heart Failure: No Hx Pacemaker: No Hx Hypertension: Yes Hx Thyroid Disease: No Hx Diabetes: Yes - Type 2, Metaformin Hx Gastroesophageal Reflux: No Hx Renal Disease: No Hx Cancer: No Hx of HIV: No Hx Hepatitis C: No Hx MRSA: No - Vaccination History Hx Tetanus, Diphtheria Vaccination: No Hx Influenza Vaccination: No Hx Pneumococcal Vaccination: Yes - Social History Hx Tobacco Use: No Hx Chewing Tobacco Use: No Hx Alcohol Use: No Hx Substance Use: No Hx Substance Use Treatment: No Hx Depression: No Hx Physical Abuse: No Hx Emotional Abuse: No Hx Suspected Abuse: No <Melva Alfredo Last Filed: 10/20/20 06:32> Family Medical History - Family History Father Living Status: Age at (years of age): 91 Hx Family Hypertension: Yes <Melva Alfredo Last Filed: 10/20/20 06:32> Physical Exam - Physical Exam General Appearance: Alert, Comfortable, No apparent distress, Well Developed, Well Groomed, Well Hydrated, Well Nourished Eye Exam: bilateral normal Ears, Nose, Throat: hearing grossly normal, normal ENT inspection Neck: non-tender, full range of motion, supple, normal inspection Respiratory: chest non-tender, lungs clear, normal breath sounds, no respiratory distress, no accessory muscle use Cardiovascular/Chest: normal peripheral pulses, regular rate, rhythm, no edema, no gallop, no JVD, no murmur Peripheral Pulses: radial,right: 2+, radial,left: 2+ Gastrointestinal/Abdominal: normal bowel sounds, soft, no pulsatile mass, other - + muprhys, RUQ tenderness Rectal Exam: deferred Back Exam: normal inspection, no CVA tenderness, no vertebral tenderness Extremity: normal range of motion, non-tender, normal inspection, no pedal edema, no calf tenderness, normal capillary refill Neurologic: upper cutter machine II-XII nml as tested, no motor/sensory deficits, alert, normal mood/affect, oriented x 3 Skin Exam: normal color, warm/dry <Melva Alfredo - Last Filed: 10/20/20 06:32> Progress - Progress Progress: 10/19/20 18:42 patient refused aspirin. partial ddx: covid, pneumonia, cad, gallstones/cholecystitis/gastirits patient given IVF, zosyn. States she is not allergic to celecoxib, that she takes it for her arthritis. The data reviewed when caring for this patient included: nurse notes, prior records, etc. The history and assessments from nurses notes were reviewed and considered, and the patient's home medication list was also reviewed and considered. My assessment and the results of testing completed here in the ED were discussed with the patient/family. All questions were answered, and they express understanding of my assessment and the plan. no beds here, will call for transfer. delay in dispo called 6 hospital systems all without beds. pain improved with dilaudid and toradol. Melva Alfredo DO #[id number] 10/19/20 18:43 10/19/20 18:45 RUQ US:. Cholelithiasis and acute cholecystitis. Surgical consult recommended. No wall thickening or fluid. Normal caliber common bile duct. No free fluid. 2. Mild steatosis of the liver with normal size. Physiologic vascularity. Normal ultrasound of the pancreas. 3. No abnormal sonographic findings in the right kidney. Normal caliber of the proximal abdominal aorta. 10/19/20 14:59 IV Care:Saline Lock per Protoc QSHIFT Telemetry .ONCE Sodium Chloride 0.9% (Flush) [Saline Flush Syringe] 10 ml IV PRN PRN EKG Stat Pulse Ox Stat 10/19/20 16:05 Hold Metformin x 48Hrs [id number] 10/19/20 17:02 BLOOD CULTURE Stat Laboratory Results WBC 12.4 K/mm3 (4.8-10.8) H 10/19/20 15:10 RBC 4.33 M/mm3 (4.20-5.40) 10/19/20 15:10 Hgb 13.8 gm/dL (12.0-16.0) 10/19/20 15:10 Hct 39.4 % (36.0-47.0) 10/19/20 15:10 MCV 90.8 fl (81.0-99.0) 10/19/20 15:10 MCH 31.8 pg (27.0-31.0) H 10/19/20 15:10 MCHC 35.0 g/dL (33.0-37.0) 10/19/20 15:10 RDW 12.7 % (11.5-14.5) 10/19/20 15:10 Plt Count 231 K/mm3 (130-400) 10/19/20 15:10 MPV 7.5 fl (7.40-10.4) 10/19/20 15:10 Absolute Neuts (auto) 9.70 K/uL (1.8-6.8) H 10/19/20 15:10 Absolute Lymphs (auto) 1.40 K/uL (1.0-3.4) 10/19/20 15:10 Absolute Monos (auto) 1.30 K/uL (0.2-0.8) H 10/19/20 15:10 Absolute Eos (auto) 0.00 K/uL (0.0-0.4) 10/19/20 15:10 Absolute Basos (auto) 0.00 K/uL (0.0-0.1) 10/19/20 15:10 Neutrophils % 78.3 % (42.0-78.0) H 10/19/20 15:10 Lymphocytes % 11.0 % (20.0-50.0) L 10/19/20 15:10 Monocytes % 10.3 % (2.0-9.0) H 10/19/20 15:10 Eosinophils % 0.1 % (1.0-5.0) L 10/19/20 15:10 Basophils % 0.3 % (0.0-2.0) 10/19/20 15:10 PT 9.8 SECONDS (9.0-10.9) 10/19/20 15:10 INR < 1.00 (0.9-1.15) 10/19/20 15:10 PTT (SP) 26.7 SECONDS (21.8-31.6) 10/19/20 15:10 Sodium 132 mmol/L (135-145) L 10/19/20 15:10 Potassium 4.0 mmol/L (3.6-5.0) 10/19/20 15:10 Chloride 95 mmol/L (101-111) L 10/19/20 15:10 Carbon Dioxide 25 mmol/L (21-31) 10/19/20 15:10 Anion Gap 16.0 (12-18) 10/19/20 15:10 BUN 13 mg/dL (7-18) 10/19/20 15:10 Creatinine 0.67 mg/dL (0.6-1.3) 10/19/20 15:10 BUN/Creatinine Ratio 19.4 (10-20) 10/19/20 15:10 Random Glucose 192 mg/dL (70-105) H 10/19/20 15:10 Serum Osmolality 269.8 mOsm/L (275-295) L 10/19/20 15:10 Calcium 8.6 mg/dL (8.4-10.2) 10/19/20 15:10 Magnesium 1.8 mg/dL (1.8-2.5) 10/19/20 15:10 Total Bilirubin 0.6 mg/dL (0.2-1.0) 10/19/20 15:10 Direct Bilirubin 0.1 mg/dL (0-0.2) 10/19/20 15:10 Indirect Bilirubin 0.5 mg/dL (0.2-0.8) 10/19/20 15:10 AST 18 IU/L (10-42) 10/19/20 15:10 ALT 24 IU/L (10-60) 10/19/20 15:10 Alkaline Phosphatase 47 IU/L (42-121) 10/19/20 15:10 Creatine Kinase 95 IU/L (26-140) 10/19/20 15:10 CK-MB (CK-2) 4.2 ng/mL (0.0-4.4) 10/19/20 15:10 CK-MB (CK-2) % Not Reportable 10/19/20 15:10 Troponin I < 0.02 ng/mL (0.01-0.05) 10/19/20 15:10 B-Natriuretic Peptide 21.6 pg/ml (0-100) 10/19/20 15:10 Serum Total Protein 6.6 gm/dL (6.4-8.2) 10/19/20 15:10 Albumin 3.9 g/dl (3.2-5.5) 10/19/20 15:10 Lipase 32 U/L (22-51) 10/19/20 15:10 Urine Color Yellow (Yellow) 10/19/20 17:00 Urine Appearance Clear (Clear) 10/19/20 17:00 Urine pH 7.5 (4.5-7.8) 10/19/20 17:00 Ur Specific [place] 1.015 (1.005-1.030) 10/19/20 17:00 Urine Protein Negative mg/dL 10/19/20 17:00 Urine Glucose (UA) Negative mg/dL (Negative) 10/19/20 17:00 Urine Ketones 15 mg/dL (NEGATIVE) H 10/19/20 17:00 Urine Blood Negative (Negative) 10/19/20 17:00 Urine Nitrite Negative 10/19/20 17:00 Urine Bilirubin Negative (NEGATIVE) 10/19/20 17:00 Urine Urobilinogen 0.2 mg/dL (0.2-1.0) 10/19/20 17:00 Ur Leukocyte Esterase Negative (Negative) 10/19/20 17:00 Urine RBC 0-1 /hpf 10/19/20 17:00 Urine WBC 0-1 /hpf 10/19/20 17:00 Ur Epithelial Cells 1-3 /hpf 10/19/20 17:00 Urine Bacteria Rare 10/19/20 17:00 10/19/20 19:40 10/20/20 06:33 - Results/Orders Results/Orders: Patient received 2 doses zosyn, 3rd dose due at 830 (order placed). on 100 ml ns maintenance IVF, she has recieved a total of 30 mg toradol and 4.5 mg of dilaudid for pain. VSS, will repeat blood work. Patient transferred to oncoming physician. - EKG/XRAY/CT EKG: Sinus Comments: NSR, normal intervals, no acute ischemia. XRAY: chest - ibasilar opacification which may represent scarring or atelectasis versus recurrent versus unchanged residual airspace disease. No pleural effusion or pneumothorax. - Consult/PCP Time Called: 16:20 Consult/PCP: Dr. Elliott Consult Reason/Comments: choleyctitis <Melva Alfredo - Last Filed: 10/20/20 06:32> - Progress Progress: DR ATKINSON AGAIN CONTACTED AT 0730, NOTIFIED BY [facility] THAT WE DO NOT HAVE A HOSPITAL BED FOR THIS PATIENT, KRYSTA PENA CONSULTED WELL. WILL BE ADMITTING TO HOSPITAL AND PROCEED WITH GB SURGERY TODAY LIKELY. 10/20/20 23:22 <Camron Maurice - Last Filed: 10/20/20 23:24> Departure - Departure Diet: other - NPO <Melva Alfredo - Last Filed: 10/20/20 06:32> <Camron Maurice - Last Filed: 10/20/20 23:24> - Departure Clinical Impression: COVID-19 Cholecystitis with cholelithiasis Qualifiers: Cholelithiasis location: gallbladder Cholecystitis acuity: acute Biliary obstruction: without biliary obstruction Qualified Code(s): K80.00 - Calculus of gallbladder with acute cholecystitis without obstruction Disposition: Admit Patient Condition: Good Home Medications: Ambulatory Orders Losartan Potassium 100 mg PO DAILY 08/19/15 Zolpidem Tartrate [Ambien] 10 mg PO BEDTIME 08/19/15 Acetaminophen [Tylenol] 500 mg PO PRN PRN 10/20/20 Aspirin [Florina Low Dose] 81 mg PO DAILY 10/20/20 Celecoxib [CeleBREX] 100 mg PO BID 10/20/20 Cetirizine HCl [ZyrTEC] 10 mg PO PRN PRN 10/20/20 Estradiol 0.5 mg PO DAILY 10/20/20 Finasteride 2.5 mg PO DAILY 10/20/20 Fluticasone Prop 0.05% Nasal [Flonase Nasal [place]] 1 spray BNAS DAILY 10/20/20 HYDROcodone 5MG/APAP 325MG [[place] 5/325] 1 ea PO PRN PRN 10/20/20 Metformin HCl [Metformin Hydrochloride] 1,000 mg PO QAM 10/20/20 Metoprolol Tartrate 50 mg PO BID 10/20/20 Multiple Minerals W/ Vitamins [Citracal Plus] 1 tab PO BID 10/20/20 Naratriptan HCl 2.5 mg PO DAILY 10/20/20 [place]-3 Fatty Acids [[place] 3 500 500 mg] 1 cap PO DAILY 10/20/20 Pantoprazole Sodium [Protonix] 40 mg PO DAILY 10/20/20 Pregabalin [Lyrica] 75 mg PO TID 10/20/20 Transfer to Outside Facility - Transfer Information Decision to Transfer Date: 10/19/20 Decision to Transfer Time: 16:20 Reason for Transfer: no beds avaliable. <Melva Alfredo - Last Filed: 10/20/20 06:32>
[2020-10-19] MEDS ORDERED: ALUM & MAG HYDROX-SIMETHICONE 30 ML, LIDOCAINE VISCOUS 2% 15 ML PO ONE ×2 (16:17)
--- NOTE | 2020-10-19 16:53 | US ---
EXAM DESCRIPTION: Abdomen,Limited: ULTRASOUND. CLINICAL HISTORY: ruq pain COMPARISON: None. TECHNIQUE: Transabdominal scanning: bhatt-scale mode. Doppler mode.. Technically difficult study due to large patient body habitus. FINDINGS: Gallbladder: Almost completely full of sludge and small echogenic stones with minimal acoustic shadowing No fluid around the gallbladder. No wall thickening. 2.7 mm. tender with transducer pressure. Common bile duct: caliber 5.8 mm within normal limits. Liver: Heterogeneously increased echogenicity; contour liver capsule smooth where seen. No fluid around the liver. Intrahepatic biliary ducts normal caliber. Doppler hepatopedal flow and normal caliber portal vein.. 11.3 mm. Long axis right lobe 14.2 cm Pancreas: normal size and echogenicity. Duct not seen. Proximal abdominal aorta: 1.7 cm normal caliber.. IVC: visualized and normal caliber. Right kidney: long axis measures nine cm; volume 118.3 ml. Cortical echogenicity is normal. Cortical thickness is normal. No echogenic stones; no hydronephrosis. IMPRESSION: 1. Cholelithiasis and acute cholecystitis. Surgical consult recommended. No wall thickening or fluid. Normal caliber common bile duct. No free fluid. 2. Mild steatosis of the liver with normal size. Physiologic vascularity. Normal ultrasound of the pancreas. 3. No abnormal sonographic findings in the right kidney. Normal caliber of the proximal abdominal aorta. Electronically signed by: Girma Romo MD 10/19/2020 4:51 PM LACTATION SPECIALIST
[2020-10-19] MEDS ORDERED: SODIUM CHLORIDE 0.9% 1000ML 1,000 ML IVS ONE (17:08)
[2020-10-19] MEDS ORDERED: PIPERACILLIN/TAZOBACTAM 4.5 GM in SODIUM CHLORIDE 0.9% 100ML 100 ML IVPB ONE (17:08)
[2020-10-19] MEDS ORDERED: fentaNYL CITRATE INJ 50 MCG/ML 2 ML AMP IV ONE (17:08)
--- NOTE | 2020-10-19 17:18 | CT ---
EXAM: CT Abdomen and Pelvis Without and With Intravenous Contrast CLINICAL HISTORY: rlq pain TECHNIQUE: Axial computed tomography images of the abdomen and pelvis without and with intravenous contrast. Sagittal and coronal reformatted images were created and reviewed. This CT exam was performed using one or more of the following dose reduction techniques: automated exposure control, adjustment of the mA and/or kV according to patient size, and/or use of iterative reconstruction technique. COMPARISON: 07/08/2020 FINDINGS: Limitations: None. Lung bases: No abnormality noted. Pleural space: No abnormality noted. Heart: No abnormality noted. Mediastinum: No abnormality noted. ABDOMEN: Liver: No abnormality noted. Gallbladder and bile ducts: The gallbladder is mildly dilated and inflamed. No calcified stones present. Pancreas: Homogeneous enhancement. No mass, inflammation or ductal dilation. Spleen: No abnormality noted. Adrenals: Visualized portions appear normal. Kidneys and ureters: Homogeneous enhancement. No mass, hydronephrosis or stone. Stomach and bowel: There is moderate colonic stool. Scattered colonic diverticula present. No diverticulitis. No evidence of acute gastrointestinal hemorrhage. No focal obstruction. PELVIS: Appendix: No findings to suggest acute appendicitis. Bladder: No filling defect to suggest mass. No stone. No inflammation. Reproductive: Hysterectomy. ABDOMEN and PELVIS: Intraperitoneal space: No free air. No significant fluid collection. Bones/joints: Degenerative and postoperative changes present in the spine with anterior and posterior metallic fusion L4-L5 and L5-S1. 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 Soft tissues: No abnormality noted. Vasculature: There is mild atherosclerosis of the aorta. No aneurysm or dissection. Lymph nodes: No pathologically enlarged lymph nodes. IMPRESSION: There is acute cholecystitis. Confirmation with sonography recommended. Electronically signed by: Laurita Fisher MD 10/19/2020 5:17 PM IDENTIFICATION AND RECORDS COMMANDER
[2020-10-19] MEDS ORDERED: HYDROmorphone HCL INJ 2 MG/ML VIAL IV ONE ×2 (18:16→23:49)
[2020-10-19] MEDS ORDERED: KETOROLAC TROMETHAMINE INJ 30 MG/ML VIAL IV ONE ×2 (18:42→21:43)
[2020-10-19] MEDS ORDERED: PIPERACILLIN/TAZOBACTAM 3.375 GM in SODIUM CHLORIDE 0.9% 100ML 100 ML IVPB ONE (23:21)
[2020-10-20] MEDS: SODIUM CHLORIDE 0.9% 1000ML 1,000 ML IVS PRN ×2 (00:30→09:17)
[2020-10-20] MEDS ORDERED: HYDROmorphone HCL INJ 2 MG/ML VIAL IV ONE ×6 (04:08→20:27)
[2020-10-20] MEDS ORDERED: PHENYLEPHRINE INJ 1ML 10 MG/ML VIAL ONE (07:00)
[2020-10-20] MEDS ORDERED: SODIUM CHLORIDE 0.9% 50 ML VIAL ONE (07:00)
[2020-10-20] MEDS ORDERED: MAGNESIUM SULFATE INJ 1 GM/2 ML VIAL ONE (07:00)
[2020-10-20] MEDS ORDERED: PROPOFOL 200 MG/20 ML VIAL IV ONE (07:00)
[2020-10-20] MEDS ORDERED: DEXAMETHASONE INJ 10 MG/ML VIAL ONE (07:00)
[2020-10-20] MEDS ORDERED: PIPERACILLIN/TAZOBACTAM 3.375 GM in SODIUM CHLORIDE 0.9% 100ML 100 ML IVPB ONE (08:30)
--- NOTE | 2020-10-20 08:40 | HP ---
SUPERVISING PHYSICIAN: Kasi Colin MD CHIEF COMPLAINT: Right sided rib pain. HISTORY OF PRESENT ILLNESS: This is a 75-year-old female patient who presented to the Emergency Room due to right sided rib pain. She started having pain two days prior to her admission to the Emergency Room. She actually came to the ER on 10/19/20. Her initial vital signs were temperature 96.9, heart rate 79, blood pressure 158/82, respiratory rate 20, O2 saturation 97%. It is to be noted that her is in the hospital with COVID-19 pneumonitis and she did test positive for COVID-19. Labs were done and WBCs were 12,400, hemoglobin 13.8, hematocrit 39.4. She had a left shift on her differential. Electrolytes showed sodium 132, potassium 4, chloride 95, glucose 192. The remainder of her metabolic panel was within normal limits. Lipase was 32. Urinalysis was unremarkable. Her chest x-ray showed normal sized cardiac silhouette, partially calcified aorta, bibasilar opacification which may representing scarring or atelectasis versus recurrent versus unchanged residual airspace disease. Her abdominal ultrasound showed cholelithiasis and acute cholecystitis. Surgical consult recommended. Abdominopelvic CT showed acute cholecystitis. Confirmation with sonography is recommended. Dr. Elliott was consulted, but at that time she was in the Emergency Room and there were no hospital beds available. They attempted to transfer her to several hospitals and were unable to find placement. She was kept in the ER overnight. Her pain was controlled and this morning, Dr. Elliott, general surgeon, took her to surgery. She had a laparoscopic cholecystectomy. It was found to be quite diseased and purulent, so she was admitted to the hospital postoperatively for pain control and initiation of IV antibiotics. There were no intraoperative complications. PAST MEDICAL HISTORY: 1. Diabetes mellitus, type 2. 2. Hypertension. 3. Gastroesophageal reflux disease. 4. Myocardial infarction. 5. Season allergies. 6. Urinary incontinence due to bladder prolapse. 7. Neuropathy. PAST SURGICAL HISTORY: 1. Neck surgery. 2. Multiple back surgeries. 3. Total hysterectomy. OUTPATIENT MEDICATIONS: Per the EMR and awaiting verification. ALLERGIES: CODEINE. SOCIAL HISTORY: She is . She lives in [place]. She denies any tobacco, ETOH or illicit drug use. REVIEW OF SYSTEMS: Negative except as per history of present illness. Postoperatively, she does have some moderate abdominal pain due to postsurgical pain. PHYSICAL EXAMINATION: VITAL SIGNS: Temperature 98.2, heart rate 108, blood pressure 128/68, respiratory rate 16, O2 saturation 95% on room air. GENERAL: This is a 75-year-old female patient sitting up on the side of her bed. She is in no acute distress, but she does appear to be in mild postoperative pain. HEENT: Normocephalic, atraumatic. Pupils are equal and reactive. Oropharynx is clear. NECK: Supple without mass. RESPIRATORY: Essentially clear to auscultation. She is slightly diminished at the bases. CARDIOVASCULAR: Regular rate and rhythm. At times, she is tachycardic. GASTROINTESTINAL: Abdomen is soft. Bowel sounds are diminished. She does have several laparoscopic incisions on the abdomen, but no drainage noted. NEUROLOGIC: Awake, alert and oriented times three. LABORATORY: Lab from this morning showed WBC 17,500, hemoglobin 13.7, hematocrit 39.9. Sodium 132, potassium 3.6, chloride 95, calcium 7.7, blood glucose 193. MICROBIOLOGY: Preliminary blood cultures show no growth after 24 hours. All other labs and films have been reviewed via the EMR. IMPRESSION: 1. Acute cholecystitis status post laparoscopic cholecystectomy per Dr. Elliott, general surgeon, postoperative day #0. 2. COVID-19 pneumonitis. 3. Diabetes mellitus, type 2. 4. Hypertension. 5. Gastroesophageal reflux disease. PLAN: The patient has been admitted to the hospital postoperatively and placed in observation. She will be encouraged to walk frequently in the hallways. Operative issues will be per Dr. Elliott. I have restarted her home medications. I will order routine labs in the morning. At this point, I will not treat her COVID-19 pneumonitis because she is mostly asymptomatic. If the need arises, we will give her medications and follow lab on that. I placed her on sliding scale insulin per protocol. I have given her some Benadryl for her seasonal allergies. We will continue to monitor the patient closely and follow as needed. #[id number] [facility]
--- NOTE | 2020-10-20 09:08 | CONS ---
DATE OF CONSULTATION: 10/20/20 REASON FOR CONSULTATION: Cholecystitis. HISTORY OF PRESENT ILLNESS: This is a 75-year-old woman who presented to the Emergency Room with complaints of epigastric and right upper quadrant chest pain for at least a day. She recalled eating fried chicken beforehand. She has had symptoms of symptomatic cholelithiasis for years, but they were never sure it was her gallbladder. This involved postprandial pain and nausea. She had not any vomiting this time, no stool changes, no history of emesis. She is also COVID positive although experiencing no symptoms. PAST MEDICAL HISTORY: 1. She said she had a "mild" myocardial infarction 12 or 15 years ago. She sees a weeder thinner regularly and has had no issues since them. No history of stents or blood thinners. 2. Hypertension. 3. Diabetes, type 2. PAST SURGICAL HISTORY: 1. Tummy tuck approximately 20 years ago. MEDICATIONS: 1. Losartan. 2. Ambien. 3. Aspirin. 4. Hormones. ALLERGIES: CODEINE. She just gets sick. FAMILY HISTORY: Noncontributory. SOCIAL HISTORY: The patient denies any alcohol, tobacco or history of drug use. REVIEW OF SYSTEMS: CONSTITUTIONAL: No fevers, no chills. HEENT: No headache, visual changes, sore throat. RESPIRATORY: No cough or wheeze. CARDIOVASCULAR: No chest pain or palpitations. GASTROINTESTINAL: As above. Pain now is in the right upper quadrant. She thinks she has a hernia in the left lower quadrant that is not palpable. GENITOURINARY: No frequency, dysuria or hematuria. EXTREMITIES: No weakness, lesions or complaints. NEUROLOGIC: No complaints. PHYSICAL EXAMINATION: VITAL SIGNS: Recorded temperature is 98.7. She has been afebrile. Heart rate in the 80s. Blood pressure 120s/60s. Saturation 96% on room air. GENERAL: The patient is conscious, awake, alert and well-oriented, in no distress. HEENT: Normocephalic, atraumatic. Pupils equal and reactive. Oral mucosa is moist. NECK: Supple. No adenopathy, jugular venous distention or thyromegaly. CHEST: Clear and equal bilaterally. No wheezing or crackles. HEART: Regular rate and rhythm. ABDOMEN: Obese, soft. There is tenderness in the right upper quadrant. Bean's sign. There is no evidence of diffuse peritonitis. No palpable hernia. EXTREMITIES: No cyanosis or edema appreciated. LABORATORY: White count 17 this morning, up from yesterday. Hematocrit 39, platelet count 228. BMP is essentially normal but for glucose of 193. Liver function tests done last evening were normal. Urinalysis normal. RADIOLOGY: First a CT scan was done that was pretty unremarkable but for distended gallbladder with some inflammation. Gallbladder ultrasound was then performed which confirmed cholelithiasis and some surrounding edema. Otherwise, normal ultrasound report. IMPRESSION/RECOMMENDATION: This is a 75-year-old woman with a history of coronary disease, recently stable, hypertension, diabetes who presents with cholecystitis. She was started on antibiotics. She has remained in the Emergency Room overnight waiting for a bed to open. We will plan surgery. I have given her informed consent for laparoscopic versus open cholecystitis with all risks and benefits. We will have to contact the Operating Room to see if there is availability for her today or possibly tomorrow. #[id number] [facility]
[2020-10-20] MEDS ORDERED: HYDROmorphone HCL INJ 2 MG/ML VIAL ONE (09:12)
[2020-10-20] MEDS ORDERED: SUGAMMADEX SODIUM 200 MG/2 ML VIAL IV ONE (10:25)
[2020-10-20] MEDS ORDERED: fentaNYL CITRATE INJ 50 MCG/ML 2 ML AMP ONE (10:25)
[2020-10-20] MEDS ORDERED: MIDAZOLAM INJ 2 MG/2 ML VIAL ONE (10:25)
[2020-10-20] MEDS ORDERED: DEXMEDETOMIDINE HCL 200 MCG/2 ML INJ IV ONE (10:25)
[2020-10-20] MEDS ORDERED: ROCURONIUM BROMIDE 10 MG/ML VIAL ONE (10:26)
[2020-10-20] MEDS ORDERED: LACTATED RINGERS 1,000 ML ONE (12:55)
[2020-10-20] MEDS ORDERED: BUPIVACAINE 0.5% W/EPI 30 ML VIAL INJ ONE ×2 (13:18)
--- NOTE | 2020-10-20 14:35 | OP ---
DATE OF PROCEDURE: 10/20/20 PREOPERATIVE DIAGNOSIS: 1. Acute cholecystitis. POSTOPERATIVE DIAGNOSIS: 1. Gangrenous cholecystitis. PROCEDURE: 1. Laparoscopic cholecystectomy. SURGEON: Humberto Elliott MD. ANESTHESIA: General. FINDINGS: Acutely distended, purple, partially necrotic wall of the gallbladder. The anatomy was clearly visualized through the triangle of [place]. COMPLICATIONS: None. ESTIMATED BLOOD LOSS: Less than 20. SPECIMEN: Gallbladder. PLAN: Admit. INDICATION: As stated. PROCEDURE: After complete informed consent, the patient was brought to the Operating Suite in the supine position. General anesthesia was induced. The patient was prepped and draped in sterile fashion. Marcaine 0.5% with epinephrine was used at all incision sites. While maintaining upward traction, a mary was made near the base of the umbilicus. Veress needle was introduced. There was free flow of fluid into the peritoneal cavity which was insufflated to an appropriate level with CO2 gas. We were a little bit above due to a low midline incision, so we put in our first port in the right lateral position followed by the camera which revealed no significant adhesions under the umbilicus where the incision was, so our camera port was placed there. The patient was positioned and subxiphoid and lateral ports were placed under direct visualization without difficulty. The gallbladder fundus was identified after we took down some adhesions from the omentum that were covering the gallbladder indicating severe acute inflammation. The gallbladder was quite tense, so I then cauterized a hole in it and aspirated it. It was dark, bilious fluid with some sludge. Once it was decompressed sufficiently, the gallbladder fundus was grasped and retracted superiorly and laterally. A lot of adhesions inferiorly, but we were able to take the peritoneal and grasp the gallbladder, retracting it, then revealed the critical structures. The cystic duct and artery were dissected out and clearly visualized. Each was triply ligated with ciarra. The gallbladder was then dissected off the fossa. It was partially intrahepatic with not a good plane, very inflamed, some purulence of the posterior gallbladder wall, but no obvious liver abscess. Once we got that off, it was placed in the EndoCatch bag and removed. The area was irrigated. The aspirate was clear. There was still some oozing from the fossa, which we controlled with cautery until under low pressure it remained completely hemostatic. The clips were again examined. They were intact with no evidence of bleeding or bile leakage. The area was irrigated. All aspirate was clear. The subxiphoid fascia was then closed with 0 Vicryl using the suture passer. It was airtight and non-bleeding. The remaining trocars were removed under direct visualization. There was no bleeding from the trocar sites. The wounds were then closed with Monocryl. Dressings were applied. The patient tolerated the procedure, was awakened and taken to Recovery where she will be admitted and continue antibiotics. #[id number] [facility] [place] [facility]
[2020-10-20] MEDS ORDERED: HYDROcodone 5MG/APAP 325MG 1 EA TAB PO PRN (19:35)
[2020-10-20] MEDS ORDERED: ACETAMINOPHEN 500 MG TAB PO PRN (19:35)
[2020-10-20] MEDS ORDERED: SIMETHICONE 80 MG TAB PO PRN (19:38)
[2020-10-20] MEDS ORDERED: diphenhydrAMINE HCL 25 MG CAP PO PRN (19:40)
[2020-10-20] MEDS ORDERED: TETRAHYDROZOLINE HCL OPHTH SOL 1 DROP BOTH_EYES PRN (19:41)
[2020-10-20] MEDS ORDERED: KCL 20MEQ/D5 1/2NS 1,000 ML IVS PRN (19:44)
[2020-10-20] MEDS ORDERED: ONDANSETRON INJ 4 MG/2 ML VIAL IV PRN (19:44)
[2020-10-20] MEDS ORDERED: DEXTROSE 50% 25 GM/50 ML SYG IV PRN (19:48)
[2020-10-20] MEDS ORDERED: GLUCAGON INJ 1 MG VIAL SUBCU PRN (19:48)
[2020-10-20] MEDS ORDERED: ZOLPIDEM TARTRATE 10 MG TAB ONE (19:54)
[2020-10-20] MEDS ORDERED: METOPROLOL TARTRATE 50 MG TAB ONE (19:55)
[2020-10-20] MEDS ORDERED: SIMETHICONE 80 MG TAB ONE (19:55)
[2020-10-20] MEDS ORDERED: PREGABALIN 75 MG CAP ONE (19:55)
[2020-10-20] MEDS ORDERED: SODIUM CHLORIDE 0.9% (FLUSH) 10 ML SYG ONE (19:56)
[2020-10-20] MEDS ORDERED: KCL 20MEQ/D5 1/2NS 1,000 ML IVS ONE (19:57)
[2020-10-20] MEDS: PREGABALIN 75 MG CAP PO SCH (20:28)
[2020-10-20] MEDS: METOPROLOL TARTRATE 50 MG TAB PO SCH (20:29)
[2020-10-20] MEDS: SODIUM CHLORIDE 0.9% (FLUSH) 10 ML SYG IV SCH (20:30)
[2020-10-20] MEDS ORDERED: traMADol HCL 50 MG TAB PO PRN (20:31)
[2020-10-20] MEDS: INSULIN LISPRO 100 UNITS/ML PEN SUBCU SCH (20:43)
[2020-10-20] MEDS: PIPERACILLIN/TAZOBACTAM 3.375 GM in SODIUM CHLORIDE 0.9% 100ML 100 ML IVPB SCH (20:45)
[2020-10-20] MEDS ORDERED: ZOLPIDEM TARTRATE 10 MG TAB PO SCH (21:00)
[2020-10-21] MEDS: PIPERACILLIN/TAZOBACTAM 3.375 GM in SODIUM CHLORIDE 0.9% 100ML 100 ML IVPB SCH ×2 (02:17→08:00)
[2020-10-21] MEDS ORDERED: PANTOPRAZOLE SODIUM TAB 40 MG PO ONE (04:32)
[2020-10-21] MEDS ORDERED: PANTOPRAZOLE SODIUM TAB 40 MG PO SCH (06:30)
[2020-10-21] MEDS ORDERED: metFORMIN HCL 500 MG TAB PO SCH (07:30)
[2020-10-21] MEDS ORDERED: LOSARTAN POTASSIUM 100 MG TAB ONE (07:43)
[2020-10-21] MEDS ORDERED: FINASTERIDE 5 MG TAB ONE (07:43)
--- NOTE | 2020-10-21 07:54 | RAD ---
EXAM: Chest 1 View HISTORY: covid COMPARISON: Chest 1 View AP 10/19/2020 TECHNIQUE: Chest 1 View AP FINDINGS: Trachea midline. Heart size normal. Mild hazy and stranding bilateral lower lung field opacities. No focal consolidation or lung mass. Mild right hemidiaphragm elevation. Moderate decreased inspiration (decreased lung volumes) makes evaluation more difficult. No significant pleural effusion or pneumothorax. Anterior cervical spinal fusion hardware is partially-imaged. IMPRESSION: Moderate decreased inspiration (decreased lung volumes) makes evaluation more difficult. Mild hazy and stranding bilateral lower lung field opacities. This may represent subsegmental atelectasis or scar. Electronically signed by: Rob Moran MD 10/21/2020 7:52 AM PUBLIC INFORMATION COORDINATOR
[2020-10-21] MEDS: PREGABALIN 75 MG CAP PO SCH (08:00)
[2020-10-21] MEDS: METOPROLOL TARTRATE 50 MG TAB PO SCH (08:00)
[2020-10-21] MEDS: SODIUM CHLORIDE 0.9% (FLUSH) 10 ML SYG IV SCH (08:01)
[2020-10-21] MEDS: INSULIN LISPRO 100 UNITS/ML PEN SUBCU SCH ×2 (08:27→12:42)
[2020-10-21] MEDS ORDERED: LOSARTAN POTASSIUM 100 MG TAB PO SCH (09:00)
[2020-10-21] MEDS ORDERED: FINASTERIDE 5 MG TAB PO SCH (09:00)
[2020-10-21] MEDS ORDERED: NARATRIPTAN HCL 2.5 MG PO SCH (09:00)
[2020-10-21 12:48] VITALS: BP 154/72; TEMP 97.6; O2SAT 93
[2020-10-21] MEDS ORDERED: ACETAMINOPHEN 500 MG TAB PO PRN (14:00)
--- NOTE | 2020-11-01 11:36 | DS ---
SUPERVISING PHYSICIAN: Kasi Colin MD DISCHARGE DIAGNOSIS: 1. Acute cholecystitis status post laparoscopic cholecystectomy per Dr. Elliott, general surgeon, postoperative day #1. 2. COVID-19 pneumonitis. 3. Diabetes mellitus, type 2. 4. Hypertension. 5. Gastroesophageal reflux disease. HISTORY OF PRESENT ILLNESS: This is a 75-year-old female patient who came to the Emergency Room due to right sided rib pain. She started having pain two days prior to coming to the Emergency Room. She actually had been in the ER on 10/19/20. Her initial vital signs were stable. Her was in the hospital with COVID-19 pneumonitis and she also tested positive for COVID. Her chest x- ray showed normal sized cardiac silhouette, partially calcified aorta, bibasilar opacification which may represent scarring or atelectasis versus unchanged residual airspace disease. Her abdominal ultrasound showed cholelithiasis and acute cholecystitis. Surgical consult recommended. Dr. Elliott, general surgeon, was consulted. Initially, there were no beds in the hospital at the time she needed to be admitted. They were unable to transfer her to several hospitals, so she stayed in the Emergency Room. The morning she was admitted, Dr. Elliott, general surgeon, took her to surgery from the ER. She had a laparoscopic cholecystectomy. The gallbladder was quite diseased and purulent, so he requested she be placed in observation for pain control and initiation of IV antibiotics. HOSPITAL COURSE: The patient was placed on Dr. Elliott's postoperative orders. She was continued on Zosyn and her diet was advanced as tolerated. Initially, she had some pain control issues, but was titrated off the Dilaudid and changed to her home medication of hydrocodone. She has been up walking around. Dr. Elliott had seen her today and she is to be discharged home in stable condition. It is to be noted that there were no issues with her COVID. Her vital signs remained stable. Her O2 saturations were in the mid 90s on room air. LABORATORY: WBCs 12,400 on admission and are up to 19,100. Hemoglobin and hematocrit are stable at 12.5 and 36.9. She does have left shift on differential. Sodium slightly low at 133, potassium 3.9, chloride 100. Calcium slightly low at 7.8 with an AST of 56. Urinalysis was unremarkable. MICROBIOLOGY: Blood cultures were sent out. RADIOLOGY: Chest x-ray this morning showed moderate decreased inspiration making evaluation more difficult, mild hazy and stranding bilateral lower lung field opacities that may represent subsegmental atelectasis or scar. DISCHARGE PLAN: The patient will be discharged home in stable condition. She is to resume her previous diet and increase her activity as tolerated. It is recommended she walk as much as possible. She is to followup with her primary care provider, ENRIKE Baker, in the next few days as well as followup with Dr. Elliott as instructed. She is to shower in 24 hours and remove tape in 5 days. In addition to her routine home medications. She is also to have Align as well as Augmentin. She is to return to the hospital or followup with Dr. Elliott or Samantha Villanueva for any problems or complications. DISCHARGE MEDICATIONS: 1. Ambien. 2. Losartan. 3. Naratriptan. 4. Pregabalin. 5. Pantoprazole. 6. [place]-3 fatty acids. 7. Multivitamin. 8. Metoprolol. 9. Metformin. 10. Hydrocodone. 11. Fluticasone nasal. 12. Finasteride. 13. Estradiol. 14. Cetirizine. 15. Celebrex. 16. Aspirin. 17. Acetaminophen. 18. Align. 19. Augmentin. #[id number] [facility]
== END 2020-10-21 14:35 | disposition home or self-care (01) ==
LOC: ER 14:47 → MS 10-20 08:36
PROVIDERS: ADMIT Nurse Practitioner Acute Care; ATTEND Nurse Practitioner Acute Care
DX: K80.12 Calculus of gallbladder with acute and chronic cholecystitis without obstruction (principal); K82.A1 Gangrene of gallbladder in cholecystitis; U07.1 COVID-19; J12.89 Other viral pneumonia; I10 Essential (primary) hypertension; E11.40 Type 2 diabetes mellitus with diabetic neuropathy, unspecified; K21.9 Gastro-esophageal reflux disease without esophagitis; I25.10 Atherosclerotic heart disease of native coronary artery without angina pectoris; I25.2 Old myocardial infarction; M19.90 Unspecified osteoarthritis, unspecified site; K76.0 Fatty (change of) liver, not elsewhere classified; Z79.84 Long term (current) use of oral hypoglycemic drugs; Z79.1 Long term (current) use of non-steroidal anti-inflammatories (NSAID); Z79.82 Long term (current) use of aspirin; Z79.899 Other long term (current) drug therapy; Z88.6 Allergy status to analgesic agent
CPT/HCPCS: 47562; 00790; 96361; 96366 ×2; 96365; 96375 ×2; 96376 ×3; 96372 ×2; J3010 ×2; J1170 ×6; J1885 ×2; J2060; J2543 ×6; J3490; J7030 ×3; J3475; J1100; A4216 ×3; J2250; J1815; J7050 ×6; J7120; 80053 ×2; 82948 ×3; 36415 ×4; 82550; 80048; 82553; 85025 ×3; 85730; 85610; 84484; 81001; 80076; 87040; 83690; 83735; 83880; 88304; 71045 ×2; 74177; 76775; 99285; 93005; G0378; 87502; 87581; 87486; 87633; 87635 ×2